=== PATIENT | male | born 1965 | race Hispanic/Latino ===

== ENCOUNTER 2018-05-20 13:10 | Emergency (ER) | payer BC ==
[2018-05-20 13:11] VITALS: BMI 43.4
[2018-05-20 13:28] VITALS: RESP 18
--- NOTE | 2018-05-20 14:29 | ED PDOC ---
Arrival/HPI - General Chief Complaint: GI Problem Time Seen by Provider: 05/20/18 14:21 Historian: Patient - History of Present Illness Narrative History of Present Illness (Text): 05/20/18 14:28 53 year old male, with a past medical history that includes gout, presents to the emergency department with bleeding hemorrhoid, since 4 hours ago. Patient states he had hemorrhoids for about 2 days, and felt it bleed this morning. Patient states it would dry and clot, and then bleed again throughout the day. Patient informs he had a cyst 12 years ago, in the same area. Patient denies any fever, chills, headache, dizziness, chest pain, shortness of breath, cough, abdominal pain, nausea, vomiting, diarrhea, back pain, neck pain, urinary/bowel changes, or any other complaint. 05/20/18 16:16 Time/Duration: 4-6 hours Symptom Onset: Gradual Symptom Course: Unchanged Activities at Onset: Light Context: Home Past Medical History - Provider Review Nursing Documentation Reviewed: Yes - Infectious Disease Hx of Infectious Diseases: None - Cardiac Hx Cardiac Disorders: No - Pulmonary Hx Respiratory Disorders: No - Neurological Hx Neurological Disorder: No - HEENT Hx HEENT Disorder: No - Renal Hx Renal Disorder: No - Endocrine/Metabolic Hx Endocrine Disorders: No - Hematological/Oncological Hx Blood Disorders: No - Integumentary Hx Dermatological Disorder: No - Musculoskeletal/Rheumatological Hx Gout: Yes - Gastrointestinal Hx Gastrointestinal Disorders: No - Genitourinary/Gynecological Hx Genitourinary Disorders: No - Psychiatric Hx Psychophysiologic Disorder: No Hx Substance Use: No - Anesthesia Hx Anesthesia: No Family/Social History - Physician Review Nursing Documentation Reviewed: Yes Family/Social History: No Known Family HX Smoking Status: Never Smoked Hx Alcohol Use: Yes Hx Substance Use: No Allergies/Home Meds Allergies/Adverse Reactions: Allergies No Known Allergies Allergy (Verified 08/18/15 19:58) Home Medications: Home Meds Medication Instructions Recorded Confirmed Colchicine [Colchicine] 1 tab PO DAILY 08/18/15 05/20/18 Febuxostat [Uloric] 40 mg PO DAILY 08/18/15 05/20/18 Review of Systems - Physician Review All systems were reviewed & negative as marked: Yes - Review of Systems Constitutional: Normal. absent: Fevers, Night Sweats Eyes: Normal ENT: Normal Respiratory: Normal. absent: SOB, Cough Cardiovascular: Normal. absent: Chest Pain Gastrointestinal: Hematochezia (possibly from bleeding hemorrhoids). absent: Abdominal Pain, Diarrhea, Nausea, Vomiting Genitourinary Male: Normal. absent: Urinary Output Changes Musculoskeletal: Normal. absent: Back Pain, Neck Pain Skin: Normal Neurological: Normal. absent: Headache, Dizziness Endocrine: Normal Hemo/Lymphatic: Normal Psychiatric: Normal Physical Exam Vital Signs Reviewed: Yes Vital Signs Temp Pulse Resp BP Pulse Ox 05/20/18 15:45 97.8 F 73 18 144/82 97 05/20/18 13:31 98.1 F 72 18 167/100 H 98 05/20/18 13:26 98.1 F 72 18 167/100 H 98 Temperature: Afebrile Blood Pressure: Normal Pulse: Regular Respiratory Rate: Normal Appearance: Positive for: Well-Appearing, Non-Toxic, Comfortable Pain Distress: None Mental Status: Positive for: Alert and Oriented X 3 - Systems Exam Head: Present: Atraumatic, Normocephalic Pupils: Present: PERRL Extroacular Muscles: Present: EOMI Conjunctiva: Present: Normal Mouth: Present: Moist Mucous Membranes Neck: Present: Normal Range of Motion Respiratory/Chest: Present: Clear to Auscultation, Good Air Exchange. No: Respiratory Distress, Accessory Muscle Use Cardiovascular: Present: Regular Rate and Rhythm, Normal S1, S2. No: Murmurs Abdomen: No: Tenderness, Distention, Peritoneal Signs Rectal: Present: Hemorrhoids Back: Present: Normal Inspection Upper Extremity: Present: Normal Inspection. No: Cyanosis, Edema Lower Extremity: Present: Normal Inspection. No: Edema Neurological: Present: GCS=15, CN II-XII Intact, Speech Normal Skin: Present: Warm, Dry, Normal Color. No: Rashes Psychiatric: Present: Alert, Oriented x 3, Normal Insight, Normal Concentration Medical Decision Making ED Course and Treatment: 05/20/18 14:38 Impression: 53 year old male presents to the emergency department with hemorrhoidal bleeding. Plan: -- Reassess and disposition Prior Visits: Notes and results from previous visits were reviewed. Progress Notes: 05/20/18 16:17 pt reports minimal bleeding at home. area located. small area of bleeding noted controlled with direct pressure. pt observed no active bleeding. no abd pain. no tachycardia. pt states feels well for dc. - Scribe Statement The provider has reviewed the documentation as recorded by the Kelvin Vo Provider Scribe Attestation: All medical record entries made by the Scribe were at my direction and personally dictated by me. I have reviewed the chart and agree that the record accurately reflects my personal performance of the history, physical exam, medical decision making, and the department course for this patient. I have also personally directed, reviewed, and agree with the discharge instructions and disposition. Disposition/Present on Arrival - Present on Arrival History of DVT/PE: No History of Uncontrolled Diabetes: No Urinary Catheter: No History of Decub. Ulcer: No History Surgical Site Infection Following: None - Disposition Diagnosis: Rectal bleeding Disposition: HOME/ ROUTINE Condition: STABLE Discharge Instructions (ExitCare): Hemorrhoids, Bloody Stools Additional Instructions: return to er with worsening symptoms or concerns. please follow up with your doctor/clinic. Prescriptions: Hydrocortisone 2.5% (Rectal) [Anusol-HC] 1 applic [place] BID #1 tube Referrals: Torey Huerta MD [Staff Provider] - Follow up with primary Apoorva Barron DO [Primary Care Provider] - Follow up with primary Forms: [employer] ([place])
[2018-05-20 15:46] VITALS: BP 144/82; PULSE 73; TEMP 97.8; O2SAT 97
== END 2018-05-20 15:46 | disposition home or self-care (01) ==
LOC: ED 13:10
DX: K62.5 Hemorrhage of anus and rectum (principal)